=== PATIENT | female | born 1960 | race Caucasian/White ===

== ENCOUNTER 2022-10-16 13:47 | Emergency (ER) | payer OTHER, SELFPAY ==
[2022-10-16] VITALS (12 sets, daily range): BP systolic 114–137; BP diastolic 61–89; PULSE 71–84; RESP 12–21; TEMP 36.7; O2SAT 93–100
--- NOTE | ~2022-10-16 | CT_ITS ---
EXAMINATION: CTA chest PE protocol DATE: 10/16/2022 15:20 INDICATION: Shortness of breath with activity for 2 weeks. TECHNIQUE: Computed tomography angiography (CTA) of the chest was performed with 100 mL Omnipaque-350 intravenous contrast timed to evaluate the pulmonary arteries. Coronal maximum intensity projection 3D-reconstructions were created by the technologist. Automated exposure control and iterative reconst ruction technique were employed. Exam dose: 429.98 mGy-cm total exam DLP. COMPARISON: None. FINDINGS: There is diagnostic contrast enhancement of the pulmonary arteries and no evidence of pulmo nary embolism. Normal heart size. Trace pericardial fluid. No thoracic aortic aneurysm or dissection is evident. No hilar or mediastinal mass lesion or lymphadenopathy is noted. 5.8 mm likely partially calcified pulmonary granuloma, lateral right upper lobe; six-month CT follow- up is recommended. There is mild bilateral lower lobe discoid and/or dependent atelectasis, right greater than left Small sliding hiatal hernia. Normal morphology of the adrenal glands. No suspicious osteolytic or osteoblastic lesions. IMPRESSION: No evidence of pulmonary embolism Probable fibrotic millimeter right upper lobe partially calcified pulmonary granuloma seminal six-mon th CT follow-up is recommended Reviewed, dictated and finalized at [facility]. Reviewed, dictated and finalized at [facility]. IMPRESSION: No evidence of pulmonary embolism Probable fibrotic millimeter right upper lobe partially calcified pulmonary gra nuloma seminal six-month CT follow-up is recommended
--- NOTE | 2022-10-16 13:57 | ECG_ITS ---
Measurements Intervals [place] Rate: 84 P: 57 NM: 154 QRS: 23 QRSD: 106 T: 40 QT: 346 QTc: 410 Interpretive Statements SINUS RHYTHM MINIMAL Q WAVES- INFERIOR LEADS BASELINE ARTIFACT- I, II, AVR BORDERLINE ECG NO PREVIOUS ECG AVAILABLE FOR COMPARISON Electronically Signed On 10-16-2022 14:09:05 CDT by Rubén Zaman D.O.
[2022-10-16 14:47] LABS: Basophils Absolute Auto 0.1 K/mm3 (0.0-0.1); Basophils Percent Auto 0.6 % (0.2-1.2); Eosinophils Absolute Auto 0.1 K/mm3 (0-0.3); Eosinophils Percent Auto 1.8 % (0-4.4); Hematocrit 39.2 % (37.0-47.0); Hemoglobin 13.1 g/dL (12.0-15.0); Immature Granulocyte Absolute 0.02 K/mm3 (0.00-0.031); Immature Granulocyte Percent A 0.3 % (0-0.5); Lymphocytes Absolute Auto 2.01 K/mm3 (0.9-3.2); Lymphocytes Percent Auto 25.5 % (18.3-44.2); Mean Corpuscular HGB Conc 33.4 g/dl (32-36); Mean Corpuscular Volume 95.8 fl (80-100); Mean Platelet Volume 8.4 fl (7.4-10.4); Monocytes Absolute Auto 0.4 K/mm3 (0.1-0.6); Monocytes Percent Auto 5.6 % (2.6-8.5); Neutrophils Absolute Auto 5.2 K/mm3 (1.3-6.7); Neutrophils Percent Auto 66.2 % (45.5-73.1); Platelet Count Result 285 k/mm3 (150-375); Red Blood Count 4.09 M/mm3 (4.2-5.4); Red Cell Distribution Width 12.3 % (11.5-14.5); White Blood Count 7.9 K/mm3 (4.5-10.0)
[2022-10-16 14:58] LABS: Alanine Aminotransferase 21 U/L (6-35); Albumin Level 4.2 g/dL (3.5-5.1); Alkaline Phosphatase 57 U/L (38-126); Anion Gap 10 mmol/L (8-16); Aspartate Amino Transferase 24 U/L (14-36); Bilirubin,Total 0.3 mg/dL (0.2-1.3); Blood Urea Nitrogen 13 mg/dL (7-17); Calcium 8.9 mg/dL (8.4-10.2); Carbon Dioxide 23 mmol/L (22-30); Chloride 99 mmol/L (98-107); Estimated Glomerular Filt Rate > 60; Glucose 82 mg/dL (65-110); Sodium 132 mmol/L (137-145)
[2022-10-16 15:09] LABS: NT Pro B Type Natriuretic Pept < 20 pg/mL (19.9-100); Troponin I < 0.012 ng/mL (0.000-0.034)
--- NOTE | 2022-10-16 15:22 | ED.GENADULT ---
HPI - General Adult General Chief complaint: Shortness of Breath/Dyspnea Stated complaint: shortness of breath Time Seen by Provider: 10/16/22 14:14 History of Present Illness HPI narrative: Cielo Galvez is a 62 y/o female with PMHx of HTN/OCD/Constipation who presents today with reports of feeling short of breath with exertion for the past 2 months. She denies having chest pain during these episodes, she thinks she might feel a little palpitations during the episodes. Denies hx of CHF/RI/COPD/Asthma. When the symptoms come on she states that she sits down and drinks water and that make her feel better and her symptoms improve. She denies any abdominal pain/nausea/vomiting/dysuria/ bowels have been moving regular with her current regimen. Denies noticing any extremity swelling. She called her PCP office and they told her to go to the ED yesterday but she came today and states she did not really want to come but felt like she had to. Review of Systems Review of Systems: CONSTITUTIONAL: Denies fever, chills, or sweats. EYES: Denies visual changes, redness, or discharge. ENT: Denies rhinorrhea, congestion, sore throat, or otalgia. CARDIOVASCULAR: Denies chest pain, palpitations, or edema. RESPIRATORY: Denies cough, reports dyspnea with exertion for the past two months. GASTROINTESTINAL: Denies abdominal pain, nausea, vomiting, or diarrhea. GENITOURINARY: Denies dysuria or hematuria. SKIN: Denies rash or itching. MUSCULOSKELETAL: Denies back pain, joint pain, or myalgia. NEUROLOGIC: Denies headache, numbness, dizziness, or weakness. PSYCHIATRIC: Denies anxiety or depression. Exam Narrative: GENERAL: Well-appearing, well-nourished, and in no acute distress. HEAD: Normocephalic, atraumatic. EYES: PERRLA and EOMI. ENT: Nares clear, no rhinorrhea or epistaxis. Mucous membranes moist. Oropharynx without tonsillar hypertrophy exudate or other lesions. NECK: Supple. No adenopathy or masses. No carotid bruits or JVD CHEST: Clear to auscultation. No respiratory distress. No wheezes rales or rhonchi HEART: Regular rate and rhythm. No murmur heard. Normal peripheral pulses. ABDOMEN: Soft, nontender, nondistended, normal active bowel sounds. EXTREMITIES: Normal range of motion. No edema. SKIN: Warm, dry, no rash. NEURO: No focal deficits. Alert and oriented x3. PSYCH: Normal mood and affect. Course Vital Signs Vital signs: Vital Signs Temperature 36.7 C 10/16/22 13:51 Pulse Rate 84 10/16/22 13:51 Respiratory Rate 16 10/16/22 13:51 Blood Pressure 137/83 10/16/22 13:51 Pulse Oximetry 100 10/16/22 13:51 Oxygen Delivery Room Air 10/16/22 13:51 Temperature 36.7 C 10/16/22 13:51 Pulse Rate 74 10/16/22 15:24 Respiratory Rate 14 10/16/22 15:24 Blood Pressure 134/61 10/16/22 15:23 Pulse Oximetry 98 10/16/22 15:01 Oxygen Delivery Room Air 10/16/22 14:02 Medical Decision Making MDM Narrative Medical decision making narrative: On exam pt is calm/ resting on stretcher denies having any symptoms at this time. Denies chest pain sating 100% on RA. No peripheral swelling noted, lung sounds clear. Concern for: Cardiac ischemia/ pulmonary embolism/ CHF/COPD/ anxiety/ anemia Labs are stable/ EKG stable/ Trop negative X2 Patient was ambulated around the department and we monitored her O2 and she kept her O2 sats at 100% patient denies feeling short of breath with the exertion. Updated pt on results of labs and CT - encouraged pt that she will need to follow up with your PCP in the next few days to have further out pt work up if she continues to have these symptoms I also informed pt that her CT is showing a pulmonary granuloma and that it is recommended that she have follow up imaging in 6 months. Patient verbalizes understanding and agrees with plan and is wanting to be d/c home. all questions answered. Differential Diagnosis Differential Diagnosis: Cardiac ischemia/ pulmonary embolism
[2022-10-16 16:19] LABS: Appearance Urine Clear (Clear); Bilirubin Urine Negative (Negative); Blood Urine Negative (Negative); Color Urine Yellow (Yellow); Glucose Urine UA Negative (Negative); Ketones Urine Negative (Negative); Leukocyte Esterase Ur Negative LEU/UL (Negative); Nitrate Urine Negative (Negative); Protein Urine Negative (Negative); Specific Grav Ur 1.034 (1.001-1.035); Urobilinogen Urine 0.2 mg/dL (<2.0); pH Urine 6.5 (5.0-9.0)
[2022-10-16 16:26] LABS: Add Urine Microscopic? NO
[2022-10-16 17:44] LABS: Troponin I < 0.012 ng/mL (0.000-0.034)
--- NOTE | 2022-10-16 18:00 | PC.NURSE ---
Pt maintained 100% of O2 during walking test. Denied SOB.
== END 2022-10-16 18:33 | disposition home or self-care (01) ==
PROVIDERS: Emergency Provider Nurse Practitioner Family
DX: R06.02 Shortness of breath (principal); I10 Essential (primary) hypertension; R94.31 Abnormal electrocardiogram [ECG] [EKG]; R91.8 Other nonspecific abnormal finding of lung field
CPT/HCPCS: 36415; 71275; 80053; 81003; 83735; 83880; 84484; 85025; 93005; 99284; Q9967

== ENCOUNTER 2023-08-08 09:09 | Outpatient (CLI) | payer OTHER, SELFPAY ==
--- NOTE | ~2023-08-08 | PE_ITS ---
EXAMINATION: PET skull to mid thigh DATE: 08/08/2023 13:01 INDICATION: Lung nodule. TECHNIQUE: Blood glucose level was 104 mg/dL. 9.194 mCi of 18-fluorodeoxyglucose (18-FDG) was adminis tered i.v. Low dose computed tomography (CT) images were acquired from the base of the brain to the p roximal thighs for attenuation correction and anatomic localization. Automated exposure control was e mployed. Dose-length product (DLP) was 859 mGy-cm. Positron emission tomography (PET) images were acq uired in the same distribution. COMPARISON: Chest CT 10/16/2022 FINDINGS: Head/neck: There are no pathologically enlarged lymph nodes. Chest: There is a 7 mm nodule in right upper lobe without increased activity. No pleural effusion. Th e heart size is normal. No pericardial effusion. There is a small sliding hiatal hernia. Abdomen/pelvis/proximal thighs: The liver, gallbladder, spleen, pancreas, adrenal glands, and left ki dney are normal. There is a 4 mm stone in right kidney. There are no dilated loops of bowel. There ar e no pathologically enlarged lymph nodes. There is no free intraperitoneal fluid. There is no osseous malignancy. IMPRESSION: 1. 7 mm pulmonary nodule without increased activity, stable from 10/16/2022, likely benign. Noncontras t low-dose chest CT is recommended in one year. Reviewed, dictated and finalized at [facility] IMPRESSION: 1. 7 mm pulmonary nodule without increased activity, stable from 10/16/2022, lik amando benign. Noncontrast low-dose chest CT is recommended in one year.
[2023-08-08 09:48] LABS: Glucose Point of Care 104 mg/dl (65-105)
== END 2023-08-08 09:10 | disposition home or self-care (01) ==
DX: R91.8 Other nonspecific abnormal finding of lung field (principal); R91.1 Solitary pulmonary nodule
CPT/HCPCS: 78815; A9552